=== PATIENT | female | born 1955 | race Caucasian/White ===

== ENCOUNTER 2017-08-04 10:04 | Emergency (ER) | payer MEDICAID ==
[2017-08-04 10:05] VITALS: BMI 38.9
[2017-08-04] MEDS ORDERED: Morphine 4 mg/ml ISec IVP STA (10:55)
[2017-08-04] MEDS ORDERED: Sodium Chloride 0.9% 500 ML IV STA (10:55)
--- NOTE | 2017-08-04 11:03 | ED PDOC ---
Arrival/HPI - General Chief Complaint: Abdominal Pain Time Seen by Provider: 08/04/17 10:40 Historian: Patient - History of Present Illness Narrative History of Present Illness (Text): 08/04/17 10:58 pt p/w + 5 days onset of persistent nausea, + poor appetite, + 5 episodes of daily diarrhea (watery/brownish, non-bloody); pt states she felt dizzy/ lightheaded, pt felt like she was going to pass out/but NO LOC; pt states + severe left lower abd pain/cramps, at most pain is 7/10; pt denied fever/chills/ sweats, + left chest region pain, no sob/palpitations, no vomiting, no urinary changes, no rashes, no fall/trauma/sick contact, no travel. pt states she usually have diarrhea, but usually without abd pain pt states no other complaints pt is here for further eval. PCP: Dr Quezada GI: ?, had colonoscopy without + findings Time/Duration: < week (5 days) Symptom Onset: Sudden Symptom Course: Worsening Quality: Tightness, Cramping Severity Level: Severe Activities at Onset: Rest Context: Home Past Medical History - Provider Review Nursing Documentation Reviewed: Yes - Travel History Have you recently traveled outside [place] w/in the past 3 mons?: No - Past History Past History: No Previous - Infectious Disease Hx of Infectious Diseases: None - Reproductive Menopause: Yes Currently : No - Cardiac Hx Cardiac Disorders: No - Pulmonary Hx Respiratory Disorders: No - Neurological Hx Neurological Disorder: No - HEENT Hx HEENT Disorder: No - Renal Hx Renal Disorder: No - Endocrine/Metabolic Hx Endocrine Disorders: Yes Hx Diabetes Mellitus Type 2: Yes Hx Hyperthyroidism: Yes - Hematological/Oncological Hx Blood Disorders: Yes Other/Comment: DVT left leg - Integumentary Hx Dermatological Disorder: No - Musculoskeletal/Rheumatological Hx Musculoskeletal Disorders: No - Gastrointestinal Hx Gastrointestinal Disorders: Yes Hx Gastroesophageal Reflux: Yes - Genitourinary/Gynecological Hx Genitourinary Disorders: No - Psychiatric Hx Depression: No Hx Emotional Abuse: No Hx Physical Abuse: No Hx Substance Use: No - Surgical History Hx Appendectomy: Yes Hx Hysterectomy: Yes - Anesthesia Hx Anesthesia: Yes Hx Anesthesia Reactions: No Hx Malignant Hyperthermia: No - Suicidal Assessment Feels Threatened In Home Enviroment: No Family/Social History - Physician Review Nursing Documentation Reviewed: Yes Family/Social History: No Known Family HX Smoking Status: Never Smoked Hx Alcohol Use: No Hx Substance Use: No Hx Substance Use Treatment: No Allergies/Home Meds Allergies/Adverse Reactions: Allergies aspirin Allergy (Verified 08/04/17 10:07) ANGIOEDEMA Home Medications: Home Meds Medication Instructions Recorded Confirmed Glimepiride [Amaryl] 4 mg PO DAILY 01/25/16 08/04/17 Lovastatin 40 mg PO HS 01/25/16 08/04/17 Metformin HCl [Glucophage] 1,000 mg PO BID 01/25/16 08/04/17 Rivaroxaban [Xarelto] 20 mg PO DAILY 01/25/16 08/04/17 Alogliptin Benzoate [Alogliptin] 25 mg PO DAILY 08/04/17 08/04/17 Denosumab [Prolia] 60 mg IM .Q 6 MONTHS 08/04/17 08/04/17 Pantoprazole Sodium [Protonix] 40 mg PO DAILY 08/04/17 08/04/17 Review of Systems - Review of Systems Constitutional: Fatigue. absent: Fevers Eyes: Normal ENT: Normal Respiratory: Normal. absent: SOB Cardiovascular: Normal. absent: Chest Pain Gastrointestinal: Abdominal Pain, Diarrhea, Nausea, Food Intolerance. absent: Constipation, Vomiting Genitourinary Female: Normal. absent: Dysuria Musculoskeletal: Normal Skin: Normal Neurological: Dizziness Endocrine: Normal Hemo/Lymphatic: Normal Psychiatric: Normal Physical Exam - Physical Exam Narrative Physical Exam (Text): 08/04/17 1058 General: alert/awake, GCS = 15, oriented x 3, resting in bed, uncomfortable, cooperative, interactive; mild distress due to pain Head: NC/AT EYE: PERRLA, EOMI, sclera anicteric, no nystagmus, no photophobia Facial: WNL Oral: uvula/tongue are midline, no exudate/lesions, no drooling/stridor, no dysphonia; intact dentitions; dry oral mucosa NECK: intact ROM, no midline tenderness, no nuchal rigidity, no meningeal signs ; no step off Chest: CTA b/l, no w/r/r; no tachypenia, no accessory muscle use noted Chest Wall: no crepitus, no lesions, no gross deformities, no focal tenderness Cardiac: +S1, +S2, no m/r/r, no tachycardia Abdominal: +BS, soft/nd; + left lower abd tenderness, well nourished/obese female patient; no masses/rebound/guarding/rigidity; no pulido's sign, no mcburney's point tenderness Extremities: intact ROM, strength 5/5 grossly intact in all limbs, neurovasc intact b/l; + ambulatory; reflex +2/2 BACK: no step off, no midline tenderness, NO crepitus, no gross deformities noted; Intact ROM SKIN: cap refill ~ 1 sec, no ulcerations, no petechiae, no rashes; no gross pallor NEURO: CNII-XII WNL, no facial asymmetries, no slurr speech, oriented x 3 NIH stroke scale ~ 0 Psych: normal insight, normal affect; follows command with ease Vital Signs Reviewed: Yes Vital Signs Temp Pulse Resp BP Pulse Ox 08/04/17 14:04 98.1 F 63 18 112/65 100 08/04/17 12:45 66 18 114/69 98 08/04/17 11:36 69 18 116/71 98 08/04/17 10:11 98.5 F 73 16 114/77 96 Temperature: Afebrile Blood Pressure: Normal Pulse: Regular Respiratory Rate: Normal Appearance: Positive for: Well-Appearing, Uncomfortable. No: Ill-Appearing, Unkept Pain Distress: Mild Mental Status: Positive for: Alert and Oriented X 3 - Systems Exam Head: Present: Atraumatic, Normocephalic Medical Decision Making ED Course and Treatment: 08/04/17 1100 Impression: nausea/diarrhea, left lower abd pain i have consider all the differential diagnosis regarding pt's chief medical complaints/clinical findings, including but are not limited to: FTT, r/o colitis /diverticulitis, infxn, r/o obstructions A/P: left lower abd pain; nausea/diarrhea - labs - ct - iv - supportive care - observe/reevaluation 08/04/17 14:02 pt is doing well currently pt states her nausea is nearly resolved pt also states her abd pain is much more tolerable pt is hungry will monitor PO challenge vital signs WNL 08/04/17 14:22 pt is made aware of her medical results pt is encouraged bland diet pt is encouraged fluid hydration pt will f/u as directed pt will be discharged home Re-evaluation Time: 14:02 Reassessment Condition: Improved - Critical Care Critical Care Minutes: 30 minutes Critical Care Time: Excluding Proc Time - Lab Interpretations Lab Results: 08/04/17 11:30 08/04/17 11:30 Lab Results 08/04/17 12:16: Troponin I < 0.01 08/04/17 11:30: Sodium 142, Chloride 102, Potassium 4.7, Carbon Dioxide 26, Anion Gap 19, BUN 19, Creatinine 0.7, Est GFR ( Amer) > 60, Est GFR (Non- Af Amer) > 60, Random Glucose 183 H, Calcium 9.7, Magnesium 1.7, Total Bilirubin 0.2, AST 24, ALT 30, Alkaline Phosphatase 77, Total Protein 7.8, Albumin 4.3, Globulin 3.5, Albumin/Globulin Ratio 1.2, Lipase 129 08/04/17 11:30: pO2 31, VBG pH 7.34, VBG pCO2 56.0, VBG HCO3 30.2 H, VBG Total CO2 31.9 H, VBG O2 Sat (Calc) 66.6 H, VBG Base Excess 3.1 H, VBG Potassium 4.9, Sodium 139.0, Chloride 104.0, Glucose 192 H, Lactate 3.4 H, FiO2 21.0, Venous Blood Potassium 4.9 08/04/17 11:30: PT 11.0, INR 0.96, APTT 22.9 L 08/04/17 11:30: WBC 9.2, RBC 4.77, Hgb 12.6, Hct 39.4, MCV 82.6, MCH 26.4, MCHC 32.0, RDW 14.8 H, Plt Count 262, MPV 10.6, Gran % 61.3, Lymph % (Auto) 30.3, [place] % (Auto) 6.0, Eos % (Auto) 2.0, Baso % (Auto) 0.4, Gran # 5.64, Lymph # ( Auto) 2.8, [place] # (Auto) 0.6, Eos # (Auto) 0.2, Baso # (Auto) 0.04 08/04/17 11:10: Urine Color Yellow, Urine Appearance Clear, Urine pH 5.5, Ur Specific [place] >= 1.030, Urine Protein Negative, Urine Glucose (UA) Negative, Urine Ketones Negative, Urine Blood Negative, Urine Nitrate Negative, Urine Bilirubin Negative, Urine Urobilinogen 0.2, Ur Leukocyte Esterase Negative I have reviewed the lab results: Yes Interpretation: Abnormal lab values (elevated lactate) - RAD Interpretation Narrative RAD Interpretations (Text): 08/04/17 13:00 CT abdomen and pelvis: Creator : Jose Medley MD FINDINGS: LOWER THORAX: Unremarkable. LIVER: Unremarkable. No gross lesion or ductal dilatation. Mild fatty infiltration GALLBLADDER AND BILE DUCTS: Unremarkable. PANCREAS: Unremarkable. No gross lesion or ductal dilatation. SPLEEN: Unremarkable. ADRENALS: Unremarkable. No mass. KIDNEYS AND URETERS: Unremarkable. No hydronephrosis. No solid mass. VASCULATURE: Unremarkable. No aortic aneurysm. Caval filter BOWEL: Unremarkable. No obstruction. No gross mural thickening. APPENDIX: Normal appendix. PERITONEUM: Unremarkable. No free fluid. No free air. LYMPH NODES: Unremarkable. No enlarged lymph nodes. BLADDER: Unremarkable. REPRODUCTIVE: Unremarkable. BONES: No acute fracture. OTHER FINDINGS: None. IMPRESSION: No acute intra-abdominal findings Radiology Orders: 08/04/17 10:55 ABD & PELVIS IV CONTRAST ONLY [CT] Stat Front End Application Developer: Radiologist - EKG Interpretation EKG Interpretation (Text): 08/04/17 14:03 NSR at 70 bpm, LAD, no ectopy, diffuse low voltage, poor R-wave progression, no st changes, ABNL EKG; unchanged compare with old ekg 01/2016 Interpreted by ED Physician: Yes Type: 12 lead EKG Comparison: Similar to previous EKG - Medication Orders Current Medication Orders: Discontinued Medications Famotidine (Pepcid) 20 mg IVP STAT STA Stop: 08/04/17 10:56 Last Admin: 08/04/17 11:04 Dose: 20 mg IVP Administration Document 08/04/17 11:04 SF (Rec: 08/04/17 11:04 SF [email or web address] Charges for Administration # of IVP Administrations 1 Sodium Chloride (Sodium Chloride 0.9%) 500 mls @ 1,000 mls/hr IV .Q30M STA Stop: 08/04/17 11:24 Last Admin: 08/04/17 11:44 Dose: 1,000 mls/hr eMAR Start Stop Document 08/04/17 11:44 HI (Rec: 08/04/17 11:44 HI [id number]) Intravenous Solution Start Date 08/04/17 Start Time 11:20 Metoclopramide HCl (Reglan) 10 mg IVP STAT STA Stop: 08/04/17 10:56 Last Admin: 08/04/17 11:04 Dose: 10 mg IVP Administration Document 08/04/17 11:04 SF (Rec: 08/04/17 11:04 [email or web address]) Charges for Administration # of IVP Administrations 1 Morphine Sulfate (Morphine) 4 mg IVP STAT STA Stop: 08/04/17 10:56 Last Admin: 08/04/17 11:05 Dose: 4 mg MAR Pain Assessment Document 08/04/17 11:05 SF (Rec: 08/04/17 11:05 [email or web address] Pain Reassessment Is this a pain reassessment? Yes Sleep Is patient sleeping during reassessment? No Presence of Pain Presence of Pain Yes Pain Scale Used Pain Scale Used Numeric IVP Administration Document 08/04/17 11:05 SF (Rec: 08/04/17 11:05 [email or web address]) Charges for Administration # of IVP Administrations 1 Ondansetron HCl (Zofran Inj) 4 mg IVP STAT STA Stop: 08/04/17 14:36 - Scribe Statement The provider has reviewed the documentation as recorded by the Vaishnavi Carrillo Provider Scribe Attestation: All medical record entries made by the Scribe were at my direction and personally dictated by me. I have reviewed the chart and agree that the record accurately reflects my personal performance of the history, physical exam, medical decision making, and the department course for this patient. I have also personally directed, reviewed, and agree with the discharge instructions and disposition. Disposition/Present on Arrival - Present on Arrival Any Indicators Present on Arrival: No History of DVT/PE: Yes History of Uncontrolled Diabetes: Yes Urinary Catheter: No History of Decub. Ulcer: No History Surgical Site Infection Following: None - Disposition Have Diagnosis and Disposition been Completed?: Yes Diagnosis: Diarrhea, Dehydration, Nausea Disposition: HOME/ ROUTINE Disposition Time: 14:13 Patient Plan: Discharge Patient Problems: Current Active Problems Problem Status Onset Diarrhea Acute Dehydration Acute Nausea Acute Condition: STABLE Discharge Instructions (ExitCare): Diarrhea in Adolescents and Adults, Dehydration, Adult (DC), Nausea and Vomiting, Adult Print Language: CZECH Additional Instructions: Make sure to see your doctor in 1-2 days DRINK PLENTY OF FLUIDS Lewis diet is encouraged take your medications as prescribed RETURN TO ED IF worse pain, cant breath, persistent vomiting, high fever >101- 102 for hours, altered behavior, slurr speech, facial changes, focal weakness ( arm/leg or both), unable to urinate, heavy/persistent bleeding, passing out, chest pain, or other medical emergencies Prescriptions: Ondansetron ODT [Zofran ODT] 4 mg PO TID PRN #10 odt PRN Reason: Nausea/Vomiting traMADol [Ultram] 50 mg PO TID PRN #15 tab PRN Reason: Pain, Moderate (4-7) Referrals: [facility] Khan[facility] Reran, [Non-Staff] - Follow up with primary Forms: [facility] ([place])
[2017-08-04 11:24] LABS: PH,URINE 5.5 (4.7-8.0); URINE BILIRUBIN NEGATIVE (NEGATIVE); URINE BLOOD NEGATIVE (NEGATIVE); URINE GLUCOSE (UA) NEGATIVE (NEGATIVE); URINE LEUKOCYTE ESTERASE NEGATIVE Leu/uL (NEGATIVE); URINE PROTEIN NEGATIVE mg/dL (<30 mg/dL); URINE UROBILINOGEN 0.2 E.U./dL (<1 E.U./dL)
[2017-08-04 11:31] LABS: URINE APPEARANCE CLEAR (CLEAR); URINE COLOR YELLOW (YELLOW)
[2017-08-04 11:36] VITALS: RESP 18
[2017-08-04 11:49] LABS: VENOUS BLOOD GAS BASE EXCESS 3.1 mmol/L (0.0-2.0); VENOUS BLOOD GAS PO2 31 mm/Hg (30-55); VENOUS BLOOD PH 7.34 (7.32-7.43)
[2017-08-04 11:56] LABS: ALB/GLOB RATIO 1.2 (1.1-1.8); ALBUMIN 4.3 g/dL (3.0-4.8); ALT/SGPT 30 U/L (7-56); AST/SGOT 24 U/L (14-36); BLOOD UREA NITROGEN 19 mg/dL (7-21); CALCIUM 9.7 mg/dL (8.4-10.5); GFR AFRICAN-AMERICAN > 60; GFR NON-AFRICAN AMERICAN > 60; LIPASE 129 U/L (23-300)
[2017-08-04 11:59] LABS: BASO # 0.04 K/mm3 (0.0-2.0); BASO % 0.4 % (0.0-3.0); EOS # 0.2 (0.0-0.7); GRAN # 5.64 (1.4-6.5); GRAN % 61.3 % (50.0-68.0); HEMOGLOBIN 12.6 g/dL (12.0-16.0); LYMPH # 2.8 (1.2-3.4); LYMPH % 30.3 % (22.0-35.0); MEAN CELL VOLUME 82.6 fl (80.0-105.0); MEAN CORPUSCULAR HEMOGLOBIN 26.4 pg (25.0-35.0); MEAN PLATELET VOLUME 10.6 fl (7.0-11.0); MONO # 0.6 (0.1-0.6); RBC 4.77 10^6/uL (3.5-6.1); RED CELL DISTRIBUTION WIDTH 14.8 % (11.5-14.5); WHITE BLOOD COUNT 9.2 10^3/ul (4.5-11.0)
[2017-08-04 12:19] LABS: INR 0.96 (0.93-1.08); PARTIAL THROMBOPLASTIN TIME 22.9 Seconds (25.1-36.5)
--- NOTE | 2017-08-04 12:40 | CT ---
PROCEDURE: CT Abdomen and Pelvis with contrast HISTORY: left lower abd pain, n/diarrhea COMPARISON: None. TECHNIQUE: Contrast dose: 100 cc of Omni 350 Radiation dose: Total exam DLP = 1000 mGy-cm. This CT exam was performed using one or more of the following dose reduction techniques: Automated exposure control, adjustment of the mA and/or kV according to patient size, and/or use of iterative reconstruction technique. FINDINGS: LOWER THORAX: Unremarkable. LIVER: Unremarkable. No gross lesion or ductal dilatation. Mild fatty infiltration GALLBLADDER AND BILE DUCTS: Unremarkable. PANCREAS: Unremarkable. No gross lesion or ductal dilatation. SPLEEN: Unremarkable. ADRENALS: Unremarkable. No mass. KIDNEYS AND URETERS: Unremarkable. No hydronephrosis. No solid mass. VASCULATURE: Unremarkable. No aortic aneurysm. Caval filter BOWEL: Unremarkable. No obstruction. No gross mural thickening. APPENDIX: Normal appendix. PERITONEUM: Unremarkable. No free fluid. No free air. LYMPH NODES: Unremarkable. No enlarged lymph nodes. BLADDER: Unremarkable. REPRODUCTIVE: Unremarkable. BONES: No acute fracture. OTHER FINDINGS: None. IMPRESSION: No acute intra-abdominal findings
[2017-08-04 14:04] VITALS: TEMP 98.1; O2SAT 100
[2017-08-04 15:19] VITALS: BP 115/72; PULSE 65
--- NOTE | 2017-08-04 16:09 | CARD ---
APPROVED REPORT EKG Measurement Heart [id number] MD [id number] <Conclusion> Normal sinus rhythm Left axis deviation Low voltage QRS PRWP V# - 6, possible lead positioning
== END 2017-08-04 15:18 | disposition home or self-care (01) ==
LOC: ED 10:04
DX: E86.0 Dehydration (principal); R19.7 Diarrhea, unspecified; R11.0 Nausea; E11.9 Type 2 diabetes mellitus without complications; K21.9 Gastro-esophageal reflux disease without esophagitis
CPT/HCPCS: 74177; 80053; 81003; 82803; 82948; 83690; 83735; 84484; 85025; 85610; 85730; 93005; 96374; 96375; 99284; J2270; J2405; J2765; J7040; Q9967

== ENCOUNTER 2018-02-18 11:30 | Emergency (ER) | payer MEDICAID ==
[2018-02-18 11:31] VITALS: BMI 38.9
[2018-02-18 12:37] LABS: BASO # 0.03 K/mm3 (0.0-2.0); BASO % 0.4 % (0.0-3.0); EOS # 0.2 (0.0-0.7); EOS % 2.1 % (1.5-5.0); GRAN # 5.18 (1.4-6.5); GRAN % 61.4 % (50.0-68.0); HEMOGLOBIN 12.7 g/dL (12.0-16.0); LYMPH # 2.7 (1.2-3.4); LYMPH % 32.1 % (22.0-35.0); MEAN CELL VOLUME 83.6 fl (80.0-105.0); MEAN CORPUSCULAR HEMOGLOBIN 26.6 pg (25.0-35.0); MEAN CORPUSCULAR HGB CONC 31.8 g/dl (31.0-37.0); MEAN PLATELET VOLUME 10.2 fl (7.0-11.0); MONO # 0.3 (0.1-0.6); RBC 4.77 10^6/uL (3.5-6.1); RED CELL DISTRIBUTION WIDTH 14.6 % (11.5-14.5); WHITE BLOOD COUNT 8.4 10^3/uL (4.5-11.0)
--- NOTE | 2018-02-18 12:46 | ED PDOC ---
Arrival/HPI - General Chief Complaint: Trauma Time Seen by Provider: 02/18/18 12:06 Historian: Patient - History of Present Illness Narrative History of Present Illness (Text): 02/18/18 12:06 62 year old female, whose past medical history includes allergy to Aspirin, diabetes, hyperlipidemia and DVT on Xarelto, who presents to the emergency department status post tripping and falling forward onto both knees and hands at 13:00 yesterday afternoon. Patient states she tripped over a tree branch and notes onset of pain after fall to both knees, both shoulders, her neck and right wrist. Patient states she took Tylenol this morning around 09:00, with mild relief of symptoms. Patient denies ankle pain, hip pain, abdominal pain, or any other complaints. PMD: Elisa Robert Time/Duration: Other (Patient notes symptom onset after trip and fall yesterday afternoon ) Symptom Onset: Sudden Symptom Course: Unchanged Activities at Onset: Other (patient was walking) Context: Tripped (Pt tripped and fell over a tree branch while walking yesterday afternoon around 13:00 ) Past Medical History - Provider Review Nursing Documentation Reviewed: Yes - Past History Past History: No Previous - Infectious Disease Hx of Infectious Diseases: None - Cardiac Hx Cardiac Disorders: No - Pulmonary Hx Respiratory Disorders: No - Neurological Hx Neurological Disorder: No - HEENT Hx HEENT Disorder: No - Renal Hx Renal Disorder: No - Endocrine/Metabolic Hx Endocrine Disorders: Yes Hx Diabetes Mellitus Type 2: Yes Hx Hyperthyroidism: Yes - Hematological/Oncological Hx Blood Disorders: Yes Other/Comment: DVT left leg - Integumentary Hx Dermatological Disorder: No - Musculoskeletal/Rheumatological Hx Musculoskeletal Disorders: No - Gastrointestinal Hx Gastrointestinal Disorders: Yes Hx Gastroesophageal Reflux: Yes - Genitourinary/Gynecological Hx Genitourinary Disorders: No - Psychiatric Hx Depression: No Hx Emotional Abuse: No Hx Physical Abuse: No Hx Substance Use: No - Surgical History Hx Appendectomy: Yes Hx Hysterectomy: Yes - Anesthesia Hx Anesthesia: Yes Hx Anesthesia Reactions: No Hx Malignant Hyperthermia: No - Suicidal Assessment Feels Threatened In Home Enviroment: No Family/Social History - Physician Review Nursing Documentation Reviewed: Yes Family/Social History: Unknown Family HX Smoking Status: Never Smoked Hx Alcohol Use: No Hx Substance Use: No Hx Substance Use Treatment: No Allergies/Home Meds Allergies/Adverse Reactions: Allergies aspirin Allergy (Verified 08/04/17 10:07) ANGIOEDEMA Home Medications: Home Meds Medication Instructions Recorded Confirmed Glimepiride [Amaryl] 4 mg PO DAILY 01/25/16 08/04/17 Lovastatin 40 mg PO HS 01/25/16 08/04/17 Metformin HCl [Glucophage] 1,000 mg PO BID 01/25/16 08/04/17 Rivaroxaban [Xarelto] 20 mg PO DAILY 01/25/16 08/04/17 Alogliptin Benzoate [Alogliptin] 25 mg PO DAILY 08/04/17 08/04/17 Denosumab [Prolia] 60 mg IM .Q 6 MONTHS 08/04/17 08/04/17 Pantoprazole Sodium [Protonix] 40 mg PO DAILY 08/04/17 08/04/17 Review of Systems - Physician Review All systems were reviewed & negative as marked: Yes - Review of Systems Constitutional: Normal. absent: Fevers Eyes: Normal. absent: Vision Changes, Photophobia ENT: Normal. absent: Hearing Changes, Tinnitus Respiratory: Normal. absent: SOB, Cough Cardiovascular: Normal. absent: Chest Pain Gastrointestinal: Normal. absent: Abdominal Pain (Pt denies abdominal pain ) Musculoskeletal: Neck Pain (Pt notes neck pain), Other (Pt notes bilateral knee pain, both shoulders, and right wrist ). absent: Normal Endocrine: Normal. absent: Diaphoresis Psychiatric: Normal. absent: Anxiety, Depression Physical Exam Vital Signs Reviewed: Yes Vital Signs Temp Pulse Resp BP Pulse Ox 02/18/18 11:31 98.5 F 71 18 139/83 97 Temperature: Afebrile Blood Pressure: Normal Pulse: Regular Respiratory Rate: Normal Appearance: Positive for: Well-Appearing, Non-Toxic Pain Distress: Mild Mental Status: Positive for: Alert and Oriented X 3 - Systems Exam Head: Present: Atraumatic, Normocephalic Pupils: Present: PERRL. No: Sluggish Extroacular Muscles: Present: EOMI. No: Gaze Palsy Conjunctiva: Present: Normal. No: Injected Ears: Present: Normal, NORMAL TM. No: Erythema Mouth: Present: Moist Mucous Membranes Pharnyx: Present: Normal. No: ERYTHEMA, EXUDATE, Strider Nose (External): Present: Atraumatic Nose (Internal): Present: Normal Inspection, No Active Bleeding. No: Septal Hematoma Neck: Present: Paraspinal Tenderness (left-sided paraspinal tenderness). No: Normal Range of Motion, Meningeal Signs, MIDLINE TENDERNESS Respiratory/Chest: Present: Clear to Auscultation, Good Air Exchange. No: Respiratory Distress, Accessory Muscle Use Cardiovascular: Present: Regular Rate and Rhythm, Normal S1, S2. No: Murmurs Abdomen: Present: Normal Bowel Sounds. No: Tenderness, Distention, Peritoneal Signs Back: Present: Normal Inspection. No: CVA Tenderness, Midline Tenderness, Paraspinal Tenderness Upper Extremity: Present: Normal Inspection, Normal ROM, NORMAL PULSES, Neurovascularly Intact, Capillary Refill < 2s. No: Cyanosis, Edema, Tenderness (No snuff box tenderness bilaterally ) Lower Extremity: Present: Normal Inspection, NORMAL PULSES, Normal ROM, Neurovascularly Intact, Capillary Refill < 2 s. No: Edema Neurological: Present: GCS=15, CN II-XII Intact, Speech Normal, Motor Func Grossly Intact, Normal Cerebellar Funct Skin: Present: Warm, Dry, Normal Color. No: Rashes Psychiatric: Present: Alert, Oriented x 3, Normal Insight, Normal Concentration Medical Decision Making ED Course and Treatment: 02/18/18 12:06 Impression: 62 year old female who presents to the emergency department status post tripping and falling forward at 13:00 yesterday afternoon. Mech fall while on xarelto, no LOC. Has been walking without issue since. Normal neuro exam. No signs of trauma on exam. No abrasions. No snuff box tenderness or septal hematoma. No CVAT or back pain. No Meningeal signs or midline vertebral tenderness. N/V intact in all extremities, w/ 5/5 strength. Normal strength in digits. Plan: -- CT of cervical spine w/o contrast -- CT of head w/o contrast -- Labs -- X-Ray of chest, 2 views (PA/LAT) -- X-Ray of Shoulder min 2 views BI -- X-Ray of knees bilateral -- X-Ray of wrist, right 3 views -- Reassess and disposition Prior Visits: Notes and results from previous visits were reviewed. Patient was last seen in the emergency department on 08/04/17 for 5 days onset of persistent nausea, + poor appetite, and + 5 episodes of daily diarrhea (watery/brownish, non-bloody). Pt was discharged home in stable condition, directed to follow up with PMD, and prescribed Zofran 4mg PO, and Ultram 50mg PO Progress Notes: 02/18/18 13:58 CT, labs- largely unremarkable pending XR 02/18/18 15:02 XRs unremarkable R wrist splint placed Good N/V Status post placement. Pt notes she does not need any pain meds miri Repeat neuro exam unremarkable Pt in NAD with VSS, will d/c home with return indications and follow up. - Lab Interpretations Lab Results: 02/18/18 12:27 Lab Results 02/18/18 12:27: WBC 8.4, RBC 4.77, Hgb 12.7, Hct 39.9, MCV 83.6, MCH 26.6, MCHC 31.8, RDW 14.6 H, Plt Count 270, MPV 10.2, Gran % 61.4, Lymph % (Auto) 32.1, [place] % (Auto) 4.0, Eos % (Auto) 2.1, Baso % (Auto) 0.4, Gran # 5.18, Lymph # (Auto) 2.7, [place] # (Auto) 0.3, Eos # (Auto) 0.2, Baso # (Auto) 0.03 - RAD Interpretation Narrative RAD Interpretations (Text): CT of head reviewed by radiologist, shows: Dictator : Jose Medley MD Report Date : 02/18/2018 13:04:56 IMPRESSION: Normal CT of the Head. CT of cervical spine reviewed by radiologist, shows: Dictator : Jose Medley MD Report Date : 02/18/2018 13:19:06 IMPRESSION: Unremarkable CT of the cervical spine. Radiology Orders: 02/18/18 12:11 CERVICAL SPINE W/O CONTRAST [CT] Stat HEAD W/O CONTRAST [CT] Stat CHEST TWO VIEWS (PA/LAT) [RAD] Stat SHOULDER MIN 2 VIEWS BI [RAD] Stat KNEES BILATERAL [RAD] Stat WRIST, RIGHT 3 VIEWS [RAD] Stat Objective C Developer: Radiologist - Scribe Statement The provider has reviewed the documentation as recorded by the Scribe Betsey Lewis All medical record entries made by the Scribe were at my direction and personally dictated by me. I have reviewed the chart and agree that the record accurately reflects my personal performance of the history, physical exam, medical decision making, and the department course for this patient. I have also personally directed, reviewed, and agree with the discharge instructions and disposition. Disposition/Present on Arrival - Present on Arrival Any Indicators Present on Arrival: No History of DVT/PE: Yes History of Uncontrolled Diabetes: Yes Urinary Catheter: No History of Decub. Ulcer: No History Surgical Site Infection Following: None - Disposition Have Diagnosis and Disposition been Completed?: Yes Diagnosis: Fall, Wrist pain Disposition: HOME/ ROUTINE Disposition Time: 14:52 Condition: GOOD Discharge Instructions (ExitCare): Wrist Sprain (DC), Preventing Falls in the Older Adult Additional Instructions: TAKE TYLENOL WRITTEN ON THE BOTTLE FOR YOU PAIN. YOU MIGHT NEED AN XRAY LATER ON, IF YOU HAVE CONTINUED PAIN YOU MIGHT NEED AN ADDITIONAL XRAY. MARTA LOGAN, thank you for letting us take care of you today. Your provider was Elmer Trinh and you were treated for FELL/ ARM PAIN/ LEG PAIN. The emergency medical care you received today was directed at your acute symptoms. If you were prescribed any medication, please fill it and take as directed. It may take several days for your symptoms to resolve. Return to the Emergency Department if your symptoms worsen, do not improve, or if you have any other problems. Please contact your doctor or call one of the physicians/clinics you have been referred to that are listed on the Patient Visit Information form that is included in your discharge packet. Bring any paperwork you were given at discharge with you along with any medications you are taking to your follow up visit. Our treatment cannot replace ongoing medical care by a primary care provider outside of the emergency department. Thank you for allowing the [facility] team to be part of your care today. If you had an X-Ray or CT scan: A Radiologist will review the ED reading if any change in treatment is needed we will contact you. If you had a blood, urine, or wound culture: It will take several days for the results, if any change in treatment is needed we will contact you. If you had an STI test: It will take 48 hours for the results. Please call after 1 week if you have not heard back. Referrals: [facility] [facility] [Outside] - Follow up with primary [facility] [Outside] - [place] up [place] [facility] [place] [facility] [place] - Follow up with primary Elisa Quezada DO [Family Provider] - Follow up with primary Forms: [employer] ([place]an)
[2018-02-18 12:57] LABS: ALB/GLOB RATIO 1.2 (1.1-1.8); ALBUMIN 4.2 g/dL (3.0-4.8); ALT/SGPT 27 U/L (7-56); AST/SGOT 23 U/L (14-36); BLOOD UREA NITROGEN 15 mg/dL (7-21); CALCIUM 9.5 mg/dL (8.4-10.5); GFR NON-AFRICAN AMERICAN > 60
--- NOTE | 2018-02-18 13:08 | CT ---
Date of service: 02/18/2018 PROCEDURE: CT HEAD WITHOUT CONTRAST. HISTORY: fall on xarelto COMPARISON: 11/09/2014 TECHNIQUE: Axial computed tomography images were obtained through the head/brain without intravenous contrast. Radiation dose: Total exam DLP = 1007.47 mGy-cm. This CT exam was performed using one or more of the following dose reduction techniques: Automated exposure control, adjustment of the mA and/or kV according to patient size, and/or use of iterative reconstruction technique. FINDINGS: HEMORRHAGE: No intracranial hemorrhage. BRAIN: No mass effect or edema. No atrophy or chronic microvascular ischemic changes. VENTRICLES: Unremarkable. No hydrocephalus. CALVARIUM: Unremarkable. PARANASAL SINUSES: Unremarkable as visualized. No significant inflammatory changes. MASTOID AIR CELLS: Unremarkable as visualized. No inflammatory changes. OTHER FINDINGS: None. IMPRESSION: Normal CT of the Head.
--- NOTE | 2018-02-18 13:22 | CT ---
Date of service: 02/18/2018 PROCEDURE: CT Cervical Spine without contrast HISTORY: fall on xarelto COMPARISON: None available. TECHNIQUE: Axial computed tomography images were obtained of the cervical spine without the use of intravenous contrast. Coronal and sagittal reformatted images were created and reviewed. Radiation dose: Total exam DLP = 621.9 mGy-cm. This CT exam was performed using one or more of the following dose reduction techniques: Automated exposure control, adjustment of the mA and/or kV according to patient size, and/or use of iterative reconstruction technique. FINDINGS: VERTEBRAE: No fracture. Normal alignment. No destructive bony lesion. DISCS/SPINAL CANAL/NEURAL FORAMINA: No significant central canal or neural foraminal stenosis. Discs heights are grossly preserved. PARASPINAL SOFT TISSUES: Unremarkable. OTHER FINDINGS: None. IMPRESSION: Unremarkable CT of the cervical spine.
[2018-02-18 14:05] VITALS: BP 127/68; PULSE 75; RESP 19; TEMP 98.4; O2SAT 99
--- NOTE | 2018-02-18 14:26 | RAD ---
Date of service: 02/18/2018 PROCEDURE: Radiographs of both shoulders HISTORY: fall COMPARISON: 04/03/2017 FINDINGS: BONES: Right shoulder: Normal. No fracture. Left shoulder: Normal. No fracture. JOINTS: Right shoulder: Normal. No significant osteoarthritic changes. Left shoulder: Normal. No significant osteoarthritic changes. SOFT TISSUES: Right shoulder: Grossly unremarkable. Right shoulder: Grossly unremarkable. OTHER FINDINGS: None. IMPRESSION: Normal radiographs of the shoulders.
--- NOTE | 2018-02-18 14:27 | RAD ---
Date of service: 02/18/2018 HISTORY: fall COMPARISON: 05/22/2016 TECHNIQUE: Chest PA and lateral FINDINGS: LUNGS: No active pulmonary disease. PLEURA: No significant pleural effusion identified. No pneumothorax apparent. CARDIOVASCULAR: Aortic calcifications are seen Normal cardiac size. No pulmonary vascular congestion. OSSEOUS STRUCTURES: No significant abnormalities. VISUALIZED UPPER ABDOMEN: Normal. OTHER FINDINGS: None. IMPRESSION: No active disease.
--- NOTE | 2018-02-18 14:28 | RAD ---
Date of service: 02/18/2018 PROCEDURE: Right Wrist Radiographs. HISTORY: fall COMPARISON: None. FINDINGS: BONES: Normal. No fracture. JOINTS: Normal. No dislocation. SOFT TISSUES: Normal. OTHER FINDINGS: None. IMPRESSION: Normal right wrist radiographs.
--- NOTE | 2018-02-18 14:30 | RAD ---
Date of service: 02/18/2018 PROCEDURE: Bilateral knees HISTORY: fall COMPARISON: TECHNIQUE: Two views of each knee FINDINGS: No evidence of fracture. No significant degenerative changes. No evidence of joint effusion IMPRESSION: Negative study
== END 2018-02-18 15:22 | disposition home or self-care (01) ==
LOC: ED 11:30
DX: M25.531 Pain in right wrist (principal); W01.0XXA Fall on same level from slipping, tripping and stumbling without subsequent striking against object, initial encounter; E11.9 Type 2 diabetes mellitus without complications; E78.5 Hyperlipidemia, unspecified; Z86.718 Personal history of other venous thrombosis and embolism; Z79.01 Long term (current) use of anticoagulants